=== PATIENT | female | born 1990 | race Two or more races ===

== ENCOUNTER 2017-12-16 06:13 | Inpatient (IN) | payer OTHER ==
[~2017-12-16] VITALS: Ht 162.6 cm; Wt 75.3 kg
[2017-12-16] MEDS ORDERED: PRENATAL 19 TA1 EACH PO (09:59)
== END 2017-12-18 12:38 | DRG 775 ==
LOC: OBS/DEL 06:13 → LDR 09:16 → OB/GYN 19:30
PROC: 10E0XZZ Delivery of Products of Conception, External Approach (ICD-10-PCS; principal; 2017-12-16)
PROC: 0W8NXZZ Division of Female Perineum, External Approach (ICD-10-PCS; 2017-12-16)
PROC: 4A0HXCZ Measurement of Products of Conception, Cardiac Rate, External Approach (ICD-10-PCS; 2017-12-16)
DX: O80 Encounter for full-term uncomplicated delivery (principal); Z37.0 Single live birth; Z3A.39 39 weeks gestation of pregnancy